=== PATIENT | male | born 1995 | race Caucasian/White ===

== ENCOUNTER 2019-11-03 19:54 | Emergency (ER) | payer OTHER, SELFPAY ==
--- NOTE | ~2019-11-03 | XR_ITS ---
EXAMINATION: XR chest 1V portable DATE: 11/03/2019 21:06 INDICATION: Cough. Complete exposure. TECHNIQUE: frontal view of the chest was obtained. COMPARISON: None FINDINGS: The lungs are clear with no focal airspace opacities, pulmonary edema, pleural effusion or pneumothor ax. The cardiomediastinal silhouette is normal. Visualized bones and soft tissues are unremarkable. IMPRESSION: 1. Normal chest radiograph. Reviewed, dictated and finalized at location A. IMPRESSION: 1. Normal chest radiograph.
[2019-11-03 20:02] VITALS: BP 150/104; PULSE 78; RESP 20; TEMP 36.4; O2SAT 99
--- NOTE | 2019-11-03 21:37 | ED.GENADULT ---
HPI - General Adult General Chief complaint: Environmental Exposure Stated complaint: inhaled bleach Time Seen by Provider: 11/03/19 20:39 Source: patient Mode of arrival: ambulatory Limitations: no limitations History of Present Illness HPI narrative: This patient is a 24 year old male who presents for evaluation of possible bleach exposure. Patient states 2 weeks ago he was making a diluted bleach solution when he states some of solution splashed into his right eye. He immediately irrigated his eye for 45 minutes and he called poison control. He states he felt fine other than his right eye was irritated from irrigation. Today he was washing his shoes with a bleach solution and he reports the wind blew and he is afraid solution got into his eye and he may have aspirated. He states he did not feel anything go into his eye or mouth. He has anxiety and he is concerned he aspirated. He reports he noticed tightness in chest with breathing earlier in the day. He denies fever, wheezing, blurred vision or burning eye. Related Data Home Medications Medication Instructions Recorded Confirmed No Home Medications 11/03/19 11/03/19 Allergies Allergy/AdvReac Type Severity Reaction Status Date / Time No Known Allergies Allergy Verified 11/03/19 20:01 Review of Systems Constitutional: Constitutional: Denies chills and Denies fever(s) Eyes: Eyes: Denies blind spots, Denies blurry vision, Denies change in vision, Reports irritation (mild ) and Denies photophobia ENT: Denies nasal congestion Cardiovascular: Cardiovascular: Denies chest pain Respiratory: Respiratory: Reports chest congestion, Reports cough, Denies dyspnea and Denies wheezing Gastrointestinal: Gastrointestinal: Denies abdominal pain, Denies nausea and Denies vomiting Psychiatric: Psychiatric: Reports anxiety PMFSH Past Medical History Medical History (Updated 11/03/19 @ 23:07 by Magalie Dietz MD) Anxiety Surgical History Surgical History (Updated 11/03/19 @ 23:00 by Magalie Dietz MD) H/O hernia repair Social History Social History Smoking status: Never smoker Alcohol intake: current Gender identity (if verbalized by the patient): Male Exam Const: General: no acute distress and alert Orientation/consciousness: patient oriented x3 HENMT: Head: normocephalic and atraumatic Ears: hearing grossly normal bilaterally, external ears normal and TM's normal bilaterally General nose exam: Normal external nose present Face and sinus: normal facial exam Mouth: Yes Normal oral and palatal mucosa present, Yes lip normal, Yes tongue normal, Yes oropharynx normal and Yes moist mucous membranes Throat: posterior oropharynx normal Eyes: Pupils: Equal, round and reactive pupils present EOM: EOMs intact bilaterally Other: mild right conjunctival injection, no flueroscein uptake, normal pH to both eyes Neck: Neck: normal visual inspection Chest: Chest palpation & inspection: normal inspection of the chest Resp: Effort & Inspection: normal respiratory effort, no retractions and no use of accessory muscles Auscultation: clear to auscultation bilaterally and no wheezes Cardio: Rate: regular rate Rhythm: regular rhythm Heart sounds: no murmurs Skin: General skin exam: normal color Neuro: General: patient oriented x3 and moves all extremities Course Reevaluation(s) Reevaluation #1: I have discussed with patient that chest xray is normal and his lungs are clear. IT seems unlikely patient aspirated . He is extremely anxious. His visual acuity is at baseline per patient. He did not have glasses available. Date: 11/03/19 Time: 23:02 Vital Signs Vital signs: Vital Signs Temperature 97.6 F 11/03/19 20:02 Pulse Rate 78 11/03/19 20:02 Respiratory Rate 20 11/03/19 20:02 Blood Pressure 150/104 H 11/03/19 20:02 Pulse Oximetry 99 11/03/19 20:02 Temperature 97.6 F 11/03/19 20:02 Pulse Rate 78 11/03/19 20:
--- NOTE | 2019-11-03 21:52 | PC.NURSE ---
visual acuity done without glasses pt left them at home
== END 2019-11-04 00:04 | disposition home or self-care (01) ==
PROVIDERS: Emergency Provider General Practice
DX: Z77.098 Contact with and (suspected) exposure to other hazardous, chiefly nonmedicinal, chemicals (principal)
CPT/HCPCS: 71045; 99283; A9270